=== PATIENT | female | born 1970 | race Caucasian/White ===

== ENCOUNTER 2016-05-23 15:55 | Outpatient (CLI) | payer MEDICAID | END 2016-05-23 15:56 | disposition home or self-care (01) | DX: M79.672 Pain in left foot (principal) ==

== ENCOUNTER 2017-04-17 15:19 | Outpatient (CLI) | payer OTHER ==
[2017-04-17 18:12] LABS: BILIRUBIN,URINE NEGATIVE (NEGATIVE)
[2017-04-17 18:45] LABS: EOSINOPHILS % (AUTO) 5.4 %; HCT - HEMATOCRIT 39.6 % (37.0-47.0); HGB - HEMOGLOBIN 13.1 g/dL (12.0-16.0); LYMPHOCYTES % (AUTO) 32.4 %; MEAN CORPUSCULAR HEMOGLOBIN 29.2 pg (27.0-31.0); MEAN CORPUSCULAR HGB CONC 33.2 g/dL (32.0-36.0); MEAN CORPUSCULAR VOLUME 88.2 fL (81.0-99.0); MEAN PLATELET VOLUME 9.6 fL (7.9-10.8); MONOCYTES % (AUTO) 9.1 %; NEUTROPHILS % (AUTO) 52.1 %; RED BLOOD COUNT 4.49 10^6/uL (4.20-5.40); UNCORRECTED WHITE BLOOD COUNT 2.8 x10^3/uL; WHITE BLOOD COUNT 2.8 x10^3/uL (4.8-10.8)
[2017-04-17 18:53] LABS: ALBUMIN/GLOBULIN RATIO 1.3 (1.0-2.2); BILIRUBIN,TOTAL 0.3 mg/dL (0.2-1.0); BUN - BLOOD UREA NITROGEN 12 mg/dL (6-20); CALCIUM 8.9 mg/dL (8.5-10.3); CARBON DIOXIDE - CO2 26 mmol/L (21-32); CHLORIDE 104 mmol/L (101-111); CREATININE 0.7 mg/dL (0.4-1.0); GFR - MDRD 90 (>89); GLUCOSE 68 mg/dL (70-100); POTASSIUM 3.2 mmol/L (3.5-5.0); SODIUM 137 mmol/L (135-145); TOTAL PROTEIN 7.9 g/dL (6.7-8.2)
[2017-04-17 18:55] LABS: UA w/ MICROSCOPIC CHARGE YES
[2017-04-17 18:56] LABS: WBC,URINE 0-3 /HPF (0-5)
[2017-04-17 18:57] LABS: BAND NEUTROPHILS % (MANUAL) 0 %
[2017-04-17 19:38] LABS: BASOPHILS % (MANUAL) 2 %; EOSINOPHILS % (MANUAL) 6 %; LYMPHOCYTES % (MANUAL) 20 %; NEUTROPHILS % (MANUAL) 58 %; NP AUTO DIFFERENTIAL? YES; NP MAN DIFFERENTIAL? NO; PLATELET ESTIMATE, MANUAL NORMAL (130-450,000) (NORMAL); PLATELET MORPHOLOGY NORMAL APPEARANCE (NORMAL); TOTAL CELLS COUNTED 100
[2017-04-21 12:32] LABS: DNA (DS) ANTIBODY 1 IU/mL
[2017-04-21 13:11] LABS: COMPLEMENT COMPONENT C3C 94 mg/dL (90-180); COMPLEMENT COMPONENT C4C 9 mg/dL (16-47)
== END 2017-04-17 15:20 | disposition home or self-care (01) ==
LOC: LAB.F 15:19
DX: M32.9 Systemic lupus erythematosus, unspecified (principal)
CPT/HCPCS: 36415; 80053; 81001; 81003; 82570; 84156; 85025; 85651; 86140; 86160; 86225

== ENCOUNTER 2017-05-27 12:46 | Outpatient (CLI) | payer OTHER ==
--- NOTE | 2017-05-27 16:06 | XRAY Report ---
DATE OF SERVICE: 05/27/2017 COMPLETE CERVICAL SPINE: 05/27/2017 CLINICAL INDICATION: Neck sprain. FINDINGS: AP, lateral, oblique, and odontoid views of the cervical spine demonstrate degenerative disk and facet disease. Disk space narrowing is worst at C5-6. There is no evidence of fracture or subluxation. There is left worse than right osseous neural foraminal narrowing at C4-C5 and C5-C6. The prevertebral soft tissues are unremarkable. IMPRESSION: DEGENERATIVE DISK AND FACET DISEASE, WITH LEFT WORSE THAN RIGHT OSSEOUS NEURAL FORAMINAL NARROWING. NO EVIDENCE OF FRACTURE. TD: 05/27/2017 17:05
--- NOTE | 2017-05-27 16:11 | XRAY Report ---
DATE OF SERVICE: 05/27/2017 THREE VIEW LEFT SHOULDER: 05/27/2017 CLINICAL INDICATION: Pain. FINDINGS: Internal and external rotational views and a scapular Y view of the left shoulder demonstrate no evidence of fracture or dislocation. The joint spaces are preserved. No radiopaque foreign body is seen in the soft tissues. IMPRESSION: NORMAL LEFT SHOULDER. TD: 05/27/2017 17:08
== END 2017-05-27 12:47 | disposition home or self-care (01) ==
LOC: DI 12:46
PROVIDERS: ATTEND Nurse Practitioner Family
DX: M25.512 Pain in left shoulder (principal); M47.892 Other spondylosis, cervical region; M50.30 Other cervical disc degeneration, unspecified cervical region
CPT/HCPCS: 72050

== ENCOUNTER 2017-06-06 09:37 | Outpatient (CLI) | payer OTHER ==
--- NOTE | 2017-06-06 19:31 | MRI Report ---
EXAM: MRI CERVICAL SPINE WITHOUT CONTRAST EXAM DATE: 06/06/2017 10:46 AM. CLINICAL HISTORY: Chronic neck pain. Bilateral arm tingling. COMPARISONS: Cervical spine radiography from 05/27/2017. TECHNIQUE: Multiplanar, multisequence T1-weighted and fluid-sensitive sequences of the cervical spine without contrast. Other: None. FINDINGS: Neurologic Structures: The visualized posterior fossa structures are unremarkable. No signal abnormal ity in the visualized spinal cord. Alignment: No scoliosis or spondylolisthesis. Bone Marrow: No gross fractures or bone lesions. No marrow edema. Interspace Levels/Facets: The craniocervical junction is unremarkable. C1-C2: Unremarkable. C2-C3: Unremarkable. C3-C4: Minimal disk bulge. Tiny uncovertebral joint osteophytes. Minimal canal narrowing. No foramina l stenoses. C4-C5: Degenerative endplate changes. Moderate to severe disk space narrowing. Hzqnt-xs-jqarcook size d broad-based posterocentral to left paracentral disk protrusion/osteophyte complex. Bilateral uncove rtebral joint osteophytes. Axuj-bg-nthanirn canal stenosis. No cord impingement. Moderate narrowing o f the entry zone of the exiting left C5 nerve. Moderate left foraminal stenosis. C5-C6: Degenerative endplate changes. Moderate to severe disk space narrowing. Small disk bulge/osteo phyte complex and bilateral uncovertebral joint osteophytes. Cjhl-bs-jcbdairp canal stenosis. Mild fo raminal stenoses. C6-C7: Tiny posterior left paracentral disk protrusion. Minimal posterior disk bulge. Minimal canal n arrowing. Mild right foraminal stenosis. C7-T1: Unremarkable. Musculature: Normal. No edema or fatty atrophy. Other: The paravertebral and prevertebral soft tissues are normal. IMPRESSION: 1. Multilevel degenerative disk changes and osteophytosis. The more significant levels are at C4-C5 a nd C5-C6. 2. Small to moderate-sized posterocentral to left paracentral disk protrusion/osteophyte complex at C 4-C5. Viql-cq-fgphfkyn canal stenosis. Moderate narrowing of the entry zone of the exiting left C5 ne rve. Moderate left foraminal stenosis. 3. Small disk bulge/osteophyte complex at C5-C6. Mild to moderate canal and mild foraminal stenoses. [facility] Referring Provider Line: [phone] SITE ID: [id number]
== END 2017-06-06 09:38 | disposition home or self-care (01) ==
LOC: DI 09:37
PROVIDERS: ATTEND Nurse Practitioner Family
DX: M50.221 Other cervical disc displacement at C4-C5 level (principal); M50.31 Other cervical disc degeneration, high cervical region; M47.892 Other spondylosis, cervical region
CPT/HCPCS: 72141

== ENCOUNTER 2017-07-07 14:53 | Outpatient (CLI) | payer OTHER ==
--- NOTE | 2017-07-07 18:15 | MRI Report ---
EXAM: LEFT SHOULDER MRI WITHOUT CONTRAST EXAM DATE: 07/07/2017 03:28 PM. CLINICAL HISTORY: Acute pain in left shoulder, neck pain. COMPARISON: Plain x-ray left shoulder 05/27/2017. TECHNIQUE: Multiplanar, multisequence T1-weighted and fluid-sensitive sequences of the shoulder witho ut contrast. Other: None. FINDINGS: Acromioclavicular Region: The acromion is type I. The acromioclavicular joint is unremarkable. The co racoacromial and coracoclavicular ligaments are intact. No subacromial/subdeltoid bursal fluid. Glenohumeral Region: No subluxation. No effusion or loose bodies. The articular cartilage is unremark able. The glenohumeral ligaments and joint capsule are unremarkable. Bone Marrow: No fracture, marrow edema or bone lesions. Labrum: The labrum is unremarkable on this nonarthrographic study. Musculature/Rotator Cuff: There is minimal increased T2 signal in the supraspinatus and infraspinatus portions of the rotator cuff. No tears. No proximal muscular edema or fatty atrophy. Biceps Tendon: The long head of the biceps tendon and biceps jeri are intact. Other: The subcutaneous tissues are unremarkable. IMPRESSION: 1. Type I undersurface osseous acromion shape. No bursal fluid is present. Glenohumeral joint, labrum and capsular structures are also unremarkable. 2. Mild tendinopathy of the supraspinatus and infraspinatus portions of the rotator cuff. No tears. L lindsay head of biceps also appears unremarkable. [facility] MUSCULOSKELET[facility]IOLOG[facility] SE[facility] Referring Provider Line: [phone] SITE ID: [id number]
== END 2017-07-07 14:54 | disposition home or self-care (01) ==
LOC: DI 14:53
PROVIDERS: ATTEND Physical Medicine & Rehabilitation
DX: M67.912 Unspecified disorder of synovium and tendon, left shoulder (principal)

== ENCOUNTER 2017-07-13 08:00 | Outpatient (CLI) | payer OTHER | END 2017-07-13 08:01 | disposition home or self-care (01) | LOC: LAB.R 08:00 | PROVIDERS: ATTEND Nurse Practitioner Family | DX: J02.9 Acute pharyngitis, unspecified (principal) | CPT/HCPCS: 87070 ==

== ENCOUNTER 2017-11-24 08:00 | Outpatient (CLI) | payer OTHER ==
[2017-11-24 17:51] LABS: EOSINOPHILS # (AUTO) 0.1 10^3/uL (0.0-0.7); EOSINOPHILS % (AUTO) 4.2 %; HGB - HEMOGLOBIN 13.2 g/dL (12.0-16.0); LYMPHOCYTES # (AUTO) 0.8 10^3/uL (1.5-3.5); LYMPHOCYTES % (AUTO) 25.9 %; MEAN CORPUSCULAR HEMOGLOBIN 29.6 pg (27.0-31.0); MEAN CORPUSCULAR HGB CONC 33.4 g/dL (32.0-36.0); MEAN CORPUSCULAR VOLUME 88.7 fL (81.0-99.0); MEAN PLATELET VOLUME 9.8 fL (7.9-10.8); MONOCYTES # (AUTO) 0.3 10^3/uL (0.0-1.0); NEUTROPHILS # (AUTO) 1.7 10^3/uL (1.5-6.6); NEUTROPHILS % (AUTO) 57.9 %; PLT - PLATELET COUNT 156 10^3/uL (130-450); RED BLOOD COUNT 4.44 10^6/uL (4.20-5.40)
[2017-11-24 18:08] LABS: THYROID STIMULATING HORMONE 1.13 uIU/mL (0.34-5.60)
[2017-11-24 18:09] LABS: ALBUMIN 3.9 g/dL (3.2-5.5); ALBUMIN/GLOBULIN RATIO 1.1 (1.0-2.2); BILIRUBIN,TOTAL 0.5 mg/dL (0.2-1.0); CALCIUM 9.1 mg/dL (8.5-10.3); CREATININE 0.7 mg/dL (0.4-1.0); TOTAL PROTEIN 7.6 g/dL (6.7-8.2)
== END 2017-11-24 08:01 | disposition home or self-care (01) ==
LOC: LAB.F 08:00
PROVIDERS: ATTEND Nurse Practitioner Family
DX: G43.909 Migraine, unspecified, not intractable, without status migrainosus (principal)
CPT/HCPCS: 36415; 80053; 82607; 83540; 84443; 84466; 85025